=== PATIENT | female | born 1945 | race American Indian/Alaskan Native ===

== ENCOUNTER 2020-04-16 02:30 | Emergency (ER) | payer MEDICARE, OTHER ==
--- NOTE | 2020-04-16 07:21 | Emergency Department Report ---
ED Rash HPI - HPI Chief Complaint: Back Pain/Injury Stated Complaint: BACK PAIN Time Seen by Provider: 04/16/20 06:56 Duration: 3 Days Location: Chest, Back Rash Symptoms: Yes Itching, Yes Blistering Severity: moderate Other History: 75-year-old -Irish female presents to the emergency room stating she has back discomfort x3 days with no rash. Patient denies any fall or trauma. Patient denies any fever chills no flulike symptoms. Patient reports she has a history of hypertension has had a hysterectomy. Patient reports she is taken Tylenol without much relief of her pain. She has no known drug allergies ED Review of Systems ROS: Stated complaint: BACK PAIN Other details as noted in HPI Comment: All other systems reviewed and negative Musculoskeletal: back pain Skin: rash ED Past Medical Hx - Past Medical History Previous Medical History?: Yes Hx Hypertension: Yes - Surgical History Past Surgical History?: Yes Additional Surgical History: Hysterectomy - Social History Smoking Status: Former Smoker Substance Use Type: None - Medications Home Medications: Home Medications Medication Instructions Recorded Confirmed Last Taken Type Valacyclovir HCl [Valacyclovir] 1,000 mg PO TID 7 Days #21 tablet 04/16/20 Unknown Rx traMADoL [Ultram 50 MG tab] 50 mg PO Q6HR PRN #20 tablet 04/16/20 Unknown Rx Rash Exam - Exam General: Vital signs noted. No distress. Alert and acting appropriately. HEENT: No Periorbital Edema, No Conjuctival Injection, No Chemosis, No Perioral Edema, No Tongue Edema, No Uvular Edema, No Compromised Airway, No Drooling Lungs: Yes Good Air Exchange (Normal Breath Sounds), No Wheezes, No Ronchi, No Stridor, No Cough, No Labored Respirations, No Retractions, No Use of Accessory Muscles, No Other Abnormal Lung Sounds Heart: Yes Regular, No Murmur Skin: Yes Erythema (Multiple vesicular cluster lesions) Other: Positive: Abdomen Normal, Neurologic Normal, Musculoskeletal Normal ED Course Vital Signs 04/16/20 02:38 Temperature 98.0 F Pulse Rate 94 H Respiratory 20 Rate Blood Pressure 146/111 O2 Sat by Pulse 99 Oximetry ED Medical Decision Making - Medical Decision Making 75-year-old -Irish female presents to the emergency room stating she has back discomfort x3 days with no rash. Patient denies any fall or trauma. Patient denies any fever chills no flulike symptoms. Patient reports she has a history of hypertension has had a hysterectomy. Patient reports she is taken Ty lenol without much relief of her pain. She has no known drug allergies. Patient rash appears to be shingles zoster. As the rash is vesicular erythematous does not cross over the midline and follows a dermatoid pattern. Discussed with patient treatment is she is the antiviral medication such as Valtrex 1 g 3 times a day for 7 days and pain medication. I discussed with patient I will place her on tramadol and discussed the precautions that it can cause dizziness seizure activity nausea vomiting. Discussed with patient that she should follow-up with her primary care provider in the next 3 to 5 days. Critical care attestation.: If time is entered above; I have spent that time in minutes in the direct care of this critically ill patient, excluding procedure time. ED Disposition Clinical Impression: Herpes zoster Disposition: DC-01 TO HOME OR SELFCARE Is pt being admited?: No Does the pt Need Aspirin: No Condition: Stable Instructions: Herpes Zoster (ED) Additional Instructions: Please complete antiviral medication as prescribed. Take pain medication only as needed. You can also try [id number] Tylenol or ibuprofen. Follow-up with your primary care provider if he has any further concerns. Please be aware to not operate heavy machinery while taking tramadol. Be sure to increase your water intake while taking medications. Prescriptions: traMADoL [Ultram 50 MG tab] 50 mg PO Q6HR PRN #20 tablet PRN Reason: Pain Valacyclovir HCl [Valacyclovir] 1,000 mg PO TID 7 Days #21 tablet Referrals: CURRY BELLA MD [Primary Care Provider] - 3-5 Days MEHRDAD ETIENNE MD [Referring] - 3-5 Days
[2020-04-16 07:41] VITALS: BP 172/98
== END 2020-04-16 07:34 | disposition home or self-care (01) ==
LOC: ED 02:30
DX: B02.9 Zoster without complications (principal); I10 Essential (primary) hypertension; Z79.899 Other long term (current) drug therapy; Z90.710 Acquired absence of both cervix and uterus; Z87.891 Personal history of nicotine dependence
CPT/HCPCS: 99282

== ENCOUNTER 2021-02-28 13:02 | Outpatient (CLI) | payer MEDICARE, OTHER ==
--- NOTE | 2021-02-28 15:05 | Mammography Report ---
DIGITAL SCREENING MAMMOGRAM WITH TOMOSYNTHESIS WITH CAD, 02/28/2021 CLINICAL INFORMATION / INDICATION: Screening TECHNIQUE: Digital bilateral 2D and 3D mammography with tomosynthesis was obtained in the craniocaud al and mediolateral oblique projections. Computer-Aided Detection (CAD) analysis was used for interp retation of this study. COMPARISON: 01/11/2020 FINDINGS: Breast Density: There are scattered areas of fibroglandular density. No dominant mass, suspicious calcifications, or architectural distortion in either breast. IMPRESSION: No mammographic evidence of malignancy. Follow up recommendation: Routine yearly BI-RADS Category 1: Negative. A "normal" or negative report should not discourage follow up or biopsy of a clinically significant f inding. A written summary of these findings will be mailed to the patient. The patient will be entered into a mammography reporting system which will generate a reminder letter for the patient's next appointmen t at the appropriate interval. The [employer] recommends yearly mammograms starting at age 40 and continuing as l aleksander as a woman is in good health. Breast MRI is recommended for women with an approximate 20-25% or greater lifetime risk of breast cancer, including women with a strong family history of breast or ova marquis cancer or who have been treated for Hodgkin's disease. Signer Name: Kenji Hendricks MD Signed: 02/28/2021 3:00 PM Workstation Name: [id number]
== END 2021-02-28 13:03 | disposition home or self-care (01) ==
LOC: SPVWC 13:02
PROVIDERS: ATTEND Surgery
DX: Z12.31 Encounter for screening mammogram for malignant neoplasm of breast (principal)
CPT/HCPCS: 77063; 77067